=== PATIENT | male | born 1960 | race Caucasian/White ===

== ENCOUNTER 2023-11-20 12:58 | Inpatient (IN) | payer MEDICAID, OTHER ==
[~2023-11-20] VITALS: Ht 167.6 cm; Wt 47.0 kg
[2023-11-20] MEDS ORDERED: IPRATROPIUM BROM 0.5 MG/2.5ML INH SOL NEB ONE ×3 (17:15→19:30)
[2023-11-20] MEDS ORDERED: methylPREDNISolone SOD SUCC 125 MG/2 ML VL IM ONE (17:15)
[2023-11-20] MEDS ORDERED: ALBUTEROL SULF 2.5 MG/0.5ML(0.5%) NEB SOLN NEB ONE ×3 (17:15→19:30)
[2023-11-20 18:06] LABS: Eosinophils # (auto) 0 10 ^3/uL (0-0.8); Lymphocytes # (auto) 0.3 10 ^3/uL (0.4-5.4); Mean Corpuscular Hemoglobin 33.7 pg (28.0-32.0); Mean Corpuscular Hgb Conc. 33.1 g/dL (32.0-36.0); Monocytes # (auto) 0.8 10 ^3/uL (0-1.3); Neutrophils # (auto) 8.5 10 ^3/uL (1.6-8.6); Nucleated Red Blood Cells % 0.1 %
[2023-11-20 18:08] LABS: Basophils # (auto) 0.1 10 ^3/uL (0-0.2); Basophils % (auto) 0.5 % (0.0-2.0); Eosinophils % (auto) 0.3 % (0.0-7.0); Hematocrit 48.5 % (41.0-53.0); Hemoglobin 16.1 g/dL (13.5-17.5); Lymphocytes % (auto) 3.4 % (10.0-50.0); Mean Corpuscular Volume 101.7 fL (80.0-100.0); Monocytes % (auto) 8.4 % (0.0-12.0); Neutrophils % (auto) 87.4 % (37.0-80.0); Red Blood Cells 4.77 10^6/uL (4.5-5.90); Red Cell Distribution Width 14.1 % (11.8-14.3); White Blood Cell 9.8 10^3/uL (4.4-10.8)
[2023-11-20 18:25] LABS: Alanine Aminotransferase 14 U/L (7-40); Albumin 4.1 g/dL (3.2-4.8); Alkaline Phosphatase 197 U/L (46-116); Aspartate Aminotransferase 27 U/L (13-40); Bilirubin, Total 0.6 mg/dL (0.2-1.0); Blood Urea Nitrogen 13 mg/dL (9-23); Calcium 9.5 mg/dL (8.5-10.1); Chloride 89 mmol/L (98-107); Glucose 96 mg/dL (74-106); Potassium 4.6 mmol/L (3.5-5.1); Sodium 135 mmol/L (136-145); Total Protein 6.4 g/dL (5.7-8.2)
[2023-11-20 18:30] LABS: Anion Gap 5.99999 (5-15)
[2023-11-20 18:31] LABS: Carbon Dioxide > 40 mmol/L (20-30)
[2023-11-20] MEDS ORDERED: MORPHINE SULFATE 4 MG/ML SYR/VIAL IV ONE (18:45)
[2023-11-20] MEDS ORDERED: ONDANSETRON HCL 4 MG/2 ML VIAL IV ONE (18:45)
[2023-11-20] MEDS ORDERED: cefTRIAXone 1GM/50ML D5W 50 ML IV ONE (18:45)
[2023-11-20] MEDS ORDERED: AZITHROMYCIN 500MG/ 250ML 250 ML IV ONE (18:45)
[2023-11-20] MEDS ORDERED: ALBUTEROL SULF 2.5 MG/0.5ML(0.5%) NEB SOLN ONE (19:00)
[2023-11-20] MEDS ORDERED: IPRATROPIUM BROM 0.5 MG/2.5ML INH SOL ONE (19:00)
[2023-11-20 19:07] LABS: Base Excess 13.5 mmol/L (-2.0-2.0)
[2023-11-20 19:41] VITALS: PULSE 116; RESP 21; O2SAT 94
[2023-11-20] MEDS ORDERED: hydrALAZINE HCL 10 MG TAB PO PRN (22:00)
[2023-11-20] MEDS ORDERED: ONDANSETRON HCL 4 MG/2 ML VIAL IV PRN (22:00)
[2023-11-20 22:48] VITALS: BP 110/66; PULSE 116; O2SAT 91
[2023-11-20 22:51] VITALS: BP 116/64; PULSE 108; RESP 24; TEMP 98.2; O2SAT 96
[2023-11-20 23:51] LABS: Base Excess 7.7 mmol/L (-2.0-2.0)
[2023-11-20] MEDS: ALBUTEROL SULF 2.5 MG/0.5ML(0.5%) NEB SOLN NEB SCH (23:52)
[2023-11-20] MEDS: IPRATROPIUM BROM 0.5 MG/2.5ML INH SOL NEB SCH (23:53)
[2023-11-20 23:56] LABS: Base Excess 10.4 mmol/L (-2.0-2.0)
[2023-11-21] VITALS (16 sets, daily range): BP systolic 106–139; BP diastolic 67–84; PULSE 89–114; RESP 17–20; TEMP 98–98.7; O2SAT 92–99
[2023-11-21 01:01] LABS: Rapid Influenza A Negative (Negative); Rapid Influenza B Negative (Negative)
[2023-11-21] MEDS: HYDROcodone-ACET 5/325MG TAB PO PRN ×2 (02:25→09:37)
[2023-11-21 04:25] LABS: Hemoglobin 15.6 g/dL (13.5-17.5); White Blood Cell 4.6 10^3/uL (4.4-10.8)
[2023-11-21 04:27] LABS: Hematocrit 46.6 % (41.0-53.0); Mean Corpuscular Hemoglobin 34.3 pg (28.0-32.0); Mean Corpuscular Hgb Conc. 33.5 g/dL (32.0-36.0); Mean Corpuscular Volume 102.3 fL (80.0-100.0); Red Blood Cells 4.56 10^6/uL (4.5-5.90); Red Cell Distribution Width 14.1 % (11.8-14.3)
[2023-11-21 04:29] LABS: Band Neutrophils % (manual) 0; Basophils % (manual) 0 (0.0-2.0); Blast Cells 0; Eosinophils % (manual) 0 (0-7); Metamyelocytes % 0; Myelocytes % 0; Promyelocytes % 0; Reactive Lymphocytes 0
[2023-11-21 04:35] LABS: Chloride 90 mmol/L (98-107); Potassium 4.6 mmol/L (3.5-5.1); Sodium 134 mmol/L (136-145)
[2023-11-21 04:36] LABS: Calcium 8.8 mg/dL (8.7-10.4)
[2023-11-21 04:41] LABS: BUN/Creatinine Ratio 17.1 (10.0-20.0); Blood Urea Nitrogen 12 mg/dL (9-23); Glucose 184 mg/dL (74-106)
[2023-11-21] MEDS: IPRATROPIUM BROM 0.5 MG/2.5ML INH SOL NEB SCH ×3 (05:45→18:28)
[2023-11-21] MEDS: ALBUTEROL SULF 2.5 MG/0.5ML(0.5%) NEB SOLN NEB SCH ×3 (05:45→18:28)
[2023-11-21 06:41] LABS: Anion Gap 3.99999 (5-15); Carbon Dioxide > 40 mmol/L (20-30)
[2023-11-21 06:53] LABS: Lymphocytes % (manual) 2 (10.0-50.0); Monocytes % (manual) 2 (0-12)
[2023-11-21 06:54] LABS: Macrocytosis Slight; Platelet Estimate Adequate
[2023-11-21 07:20] LABS: Base Excess 12.9 mmol/L (-2.0-2.0)
[2023-11-21] MEDS: PANTOPRAZOLE 40 MG/10 ML VIAL INJ IV SCH (09:37)
[2023-11-21] MEDS: levoFLOXacin 500MG 100 ML IV SCH (09:38)
[2023-11-21] MEDS ORDERED: guaiFENesin-CODEINE Liq 5 ML UD PO PRN (12:00)
[2023-11-21] MEDS: methylPREDNISolone SOD SUCC 40 MG/ML VL IV SCH ×3 (12:53→23:21)
[2023-11-21] MEDS: HYDROcodone-ACET 10/325MG TAB PO PRN (18:14)
[2023-11-21] MEDS: BUDESONIDE (INHALATION) 0.5 MG/2 ML NEB NEB SCH (18:26)
[2023-11-22] VITALS (18 sets, daily range): BP systolic 115–130; BP diastolic 66–79; PULSE 88–104; RESP 15–20; TEMP 98–98.9; O2SAT 93–100
[2023-11-22] MEDS: HYDROcodone-ACET 10/325MG TAB PO PRN ×4 (00:23→18:29)
[2023-11-22] MEDS: ALBUTEROL SULF 2.5 MG/0.5ML(0.5%) NEB SOLN NEB SCH ×4 (01:12→18:21)
[2023-11-22] MEDS: IPRATROPIUM BROM 0.5 MG/2.5ML INH SOL NEB SCH ×4 (01:12→18:21)
[2023-11-22] MEDS ORDERED: OMEP20TA PO (04:37)
[2023-11-22] MEDS ORDERED: TIOT1AER2 IN (04:37)
[2023-11-22] MEDS ORDERED: PREG50CA PO (04:37)
[2023-11-22] MEDS ORDERED: CETI1SYP5 PO (04:37)
[2023-11-22] MEDS ORDERED: TIZA4CAP PO (04:37)
[2023-11-22] MEDS ORDERED: HYDR-4072 PO (04:37)
[2023-11-22] MEDS ORDERED: GABA-339 PO (04:37)
[2023-11-22] MEDS ORDERED: FLUT250M2 INH (04:38)
[2023-11-22] MEDS: methylPREDNISolone SOD SUCC 40 MG/ML VL IV SCH ×3 (05:24→18:29)
[2023-11-22] MEDS: BUDESONIDE (INHALATION) 0.5 MG/2 ML NEB NEB SCH ×2 (06:17→18:21)
[2023-11-22] MEDS: levoFLOXacin 500MG 100 ML IV SCH (09:48)
[2023-11-22] MEDS: PANTOPRAZOLE 40 MG/10 ML VIAL INJ IV SCH (09:48)
[2023-11-23] VITALS (19 sets, daily range): BP systolic 106–129; BP diastolic 64–84; PULSE 81–110; RESP 17–97; TEMP 36.8; O2SAT 93–100
[2023-11-23] MEDS: IPRATROPIUM BROM 0.5 MG/2.5ML INH SOL NEB SCH ×4 (00:08→19:42)
[2023-11-23] MEDS: ALBUTEROL SULF 2.5 MG/0.5ML(0.5%) NEB SOLN NEB SCH ×4 (00:08→19:42)
[2023-11-23] MEDS: methylPREDNISolone SOD SUCC 40 MG/ML VL IV SCH ×4 (00:40→18:00)
[2023-11-23] MEDS: HYDROcodone-ACET 10/325MG TAB PO PRN ×3 (00:40→12:28)
[2023-11-23] MEDS: BUDESONIDE (INHALATION) 0.5 MG/2 ML NEB NEB SCH ×2 (05:55→23:50)
[2023-11-23] MEDS: levoFLOXacin 500MG 100 ML IV SCH (09:45)
[2023-11-23] MEDS: PANTOPRAZOLE 40 MG/10 ML VIAL INJ IV SCH (09:45)
[2023-11-23] MEDS ORDERED: METH4PAK PO (18:13)
[2023-11-23] MEDS ORDERED: LEVO500T91 PO (18:13)
[2023-11-23] MEDS: ACETAMINOPHEN 325 MG TAB PO PRN (21:09)
[2023-11-24] VITALS (8 sets, daily range): BP systolic 110–138; BP diastolic 68–79; PULSE 81–103; RESP 16–18; TEMP 98.3–98.4; O2SAT 97–100
[2023-11-24] MEDS: IPRATROPIUM BROM 0.5 MG/2.5ML INH SOL NEB SCH ×3 (00:12→13:16)
[2023-11-24] MEDS: ALBUTEROL SULF 2.5 MG/0.5ML(0.5%) NEB SOLN NEB SCH ×3 (00:12→13:15)
[2023-11-24] MEDS: ACETAMINOPHEN 325 MG TAB PO PRN (04:28)
[2023-11-24] MEDS: methylPREDNISolone SOD SUCC 40 MG/ML VL IV SCH ×3 (05:38→11:51)
[2023-11-24] MEDS: HYDROcodone-ACET 5/325MG TAB PO PRN ×2 (08:00→15:40)
[2023-11-24] MEDS: PANTOPRAZOLE 40 MG/10 ML VIAL INJ IV SCH (10:27)
[2023-11-24] MEDS: levoFLOXacin 500MG 100 ML IV SCH (10:28)
[2023-11-24] MEDS: BUDESONIDE (INHALATION) 0.5 MG/2 ML NEB NEB SCH (13:16)
== END 2023-11-24 18:15 | disposition home or self-care (01) | DRG 140 ==
LOC: EDBD 12:58 → ER 12:58 → EDSEX 12:58 → TELE 21:51 → TELE-CENTR 11-21 04:15
PROVIDERS: ADMIT Nurse Practitioner Family; ATTEND Nurse Practitioner Family
PROC: 5A09357 Assistance with Respiratory Ventilation, Less than 24 Consecutive Hours, Continuous Positive Airway Pressure (ICD-10-PCS; principal; 2023-11-20)
PROC: 5A09357 Assistance with Respiratory Ventilation, Less than 24 Consecutive Hours, Continuous Positive Airway Pressure (ICD-10-PCS; 2023-11-21)
PROC: 5A09357 Assistance with Respiratory Ventilation, Less than 24 Consecutive Hours, Continuous Positive Airway Pressure (ICD-10-PCS; 2023-11-22)
PROC: 5A09357 Assistance with Respiratory Ventilation, Less than 24 Consecutive Hours, Continuous Positive Airway Pressure (ICD-10-PCS; 2023-11-23)
DX: J44.1 Chronic obstructive pulmonary disease with (acute) exacerbation (principal); J96.21 Acute and chronic respiratory failure with hypoxia; J15.69 Pneumonia due to other Gram-negative bacteria; Z99.81 Dependence on supplemental oxygen; J44.0 Chronic obstructive pulmonary disease with (acute) lower respiratory infection; F11.20 Opioid dependence, uncomplicated; Z20.822 Contact with and (suspected) exposure to COVID-19; F17.210 Nicotine dependence, cigarettes, uncomplicated; G89.29 Other chronic pain; J96.22 Acute and chronic respiratory failure with hypercapnia; J15.9 Unspecified bacterial pneumonia
CPT/HCPCS: 36415; 36600; 71045; 80048; 80053; 82805; 83605; 85007; 85025; 85027; 87804; 93005; 94640; 94660; 97163; C9113; G0378; J1956; J2405